=== PATIENT | male | born 1955 | race Caucasian/White ===

== ENCOUNTER 2023-09-29 08:00 | Outpatient (RCR) | payer MEDICARE, OTHER ==
[~2023-09-29 08:00] MED LIST: ASPIR 8181 MG PO; ATORVASTATIN CA20 MG PO; ISOSORBIDE MONO60 MG PO; METOPROLOL TART25 MG PO; PLAVIX75 MG PO; SYNTHROID50 MCG PO; VASOTEC10 MG PO; VERAPAMIL ER120 MG
== END 2023-10-01 ==
LOC: PT 08:00
PROVIDERS: ATTEND Physician Assistant
DX: M75.102 Unspecified rotator cuff tear or rupture of left shoulder, not specified as traumatic (principal)

== ENCOUNTER 2023-10-20 08:00 | Outpatient (RCR) | payer MEDICARE, OTHER | END 2023-11-01 | LOC: PT 08:00 | PROVIDERS: ATTEND Physician Assistant | DX: M75.102 Unspecified rotator cuff tear or rupture of left shoulder, not specified as traumatic (principal) ==

== ENCOUNTER 2023-11-03 07:29 | Outpatient (RCR) | payer MEDICARE, OTHER | END 2023-12-02 | LOC: PT 07:29 | PROVIDERS: ATTEND Physician Assistant | DX: M75.102 Unspecified rotator cuff tear or rupture of left shoulder, not specified as traumatic (principal) ==